=== PATIENT | male | born 1950 | race Caucasian/White ===

== ENCOUNTER → 2016-11-29 | Outpatient (CLI) | payer BC, OTHER ==
--- NOTE | 2016-11-29 17:53 | PCVCIMAG ---
APPROVED REPORT Study performed: 11/29/2016 13:25:04 EXAM: Comprehensive 2D, Doppler, and color-flow Echocardiogram Patient Location: Echo lab Status: routine Other Information Study Quality: Adequate Indications Atrial Fibrillation Hypertension/HDD 2D Dimensions IVSd: 11.15 (7-11mm)LVOT Diam: 24.56 (18-24mm) LVDd: 51.80 mm PWd: 11.68 (7-11mm)Ascending Ao: 39.97 (22-36mm) LVDs: 35.35 (25-40mm) Left Atrium: 57.06 (27-40mm) Aortic Root: 35.45 mm LV Single Plane 4CH: 49.68 % LV Single Plane 2CH: 48.19 %Arroyo's LVEF: 48.94 % Biplane EF: 50.2 % Volumes Left Atrial Volume (Systole) Single Plane 4CH: 107.01 mLSingle Plane 2CH: 99.26 mL LA ESV Index: 42.00 mL/m2 Aortic Valve AoV Peak Madhu.: 1.18 m/s AO Peak Gr.: 7.72 mmHgLVOT Max P.90 mmHg LVOT Max V: 0.82 m/s FRANSISCA Vmax: 3.29 cm2 Mitral Valve E/A Ratio: 1.0 MV E Max Madhu.: 0.71 m/s MV A Madhu.: 0.68 m/s Pulmonary Valve PV Peak Gr.: 1.11 mmHg Tricuspid Valve TR Peak Madhu.: 2.79 m/s TR Peak Gr.: 33.26 mmHg Left Ventricle The left ventricle is normal size. There is normal LV segmental wall motion. There is normal left ventricular wall thickness. Left ventricular systolic function is normal. The left ventricular ejection fraction is within the normal range. LVEF is 50%. The left ventricular diastolic function is normal. Right Ventricle The right ventricle is normal size. The right ventricular systolic function is normal. Atria Left atrium is mildly dilated. The right atrium size is normal. Aortic Valve The aortic valve is normal in structure. Trace aortic regurgitation. There is no aortic valvular stenosis. Mitral Valve The mitral valve is normal in structure. Mild mitral regurgitation. No evidence of mitral valve stenosis. Tricuspid Valve The tricuspid valve is normal in structure. Trace tricuspid regurgitation. Pulmonic Valve The pulmonary valve is normal in structure. Trace pulmonic regurgitation. Great Vessels The aortic root is normal in size. The ascending aorta is mildly dilated measuring up to 4.2. IVC is normal in size and collapses with >50% inspiration Pericardium There is no pericardial effusion. <Conclusion> The left atrium size is normal. The left ventricle is normal size. There is normal left ventricular wall thickness. Left ventricular systolic function is normal. The left ventricular ejection fraction is within the normal range. LVEF is 50%. Left atrium is mildly dilated. The aortic valve is normal in structure. The mitral valve is normal in structure. The aortic root is normal in size. There is no pericardial effusion.
== END | disposition home or self-care (01) ==
LOC: PCVCIMAG 12:53
PROVIDERS: ATTEND Internal Medicine Cardiovascular Disease
DX: I08.3 Combined rheumatic disorders of mitral, aortic and tricuspid valves (principal); I10 Essential (primary) hypertension; I48.2 Chronic atrial fibrillation; E11.9 Type 2 diabetes mellitus without complications; E78.00 Pure hypercholesterolemia, unspecified; I77.810 Thoracic aortic ectasia; Z79.84 Long term (current) use of oral hypoglycemic drugs; Z79.899 Other long term (current) drug therapy; Z87.891 Personal history of nicotine dependence
CPT/HCPCS: 80061; 93005; 93306; G0463

== ENCOUNTER → 2018-06-26 | Outpatient (CLI) | payer OTHER ==
--- NOTE | 2018-06-26 15:11 | PCVCIMAG ---
APPROVED REPORT Study performed: 06/26/2018 13:16:15 EXAM: Comprehensive 2D, Doppler, and color-flow Echocardiogram Patient Location: Echo lab Status: routine BSA: 2.61 HR: 58 bpmBP: 136/74 mmHg Rhythm: Atrial Fibrillation Other Information Study Quality: Adequate Risk Factors: Cardiac Risk Factors: Hyperlipidemia, DM, HTN Indications Atrial Fibrillation 2D Dimensions IVSd: 15.05 (7-11mm)LVOT Diam: 25.00 (18-24mm) LVDd: 50.42 mm PWd: 13.57 (7-11mm)Ascending Ao: 41.96 (22-36mm) LVDs: 33.89 (25-40mm) Left Atrium: 56.62 (27-40mm) Aortic Root: 40.16 mm LV Single Plane 4CH: 52.61 % LV Single Plane 2CH: 46.93 % Volumes Left Atrial Volume (Systole) Single Plane 4CH: 120.86 mLSingle Plane 2CH: 114.43 mL LA ESV Index: 45.00 mL/m2 Aortic Valve AoV Peak Madhu.: 1.15 m/s AO Peak Gr.: 5.32 mmHgLVOT Max P.30 mmHg LVOT Max V: 0.76 m/s FRANSISCA Vmax: 3.24 cm2 Pulmonary Valve PV Peak Madhu.: 0.75 m/sPV Peak Gr.: 2.24 mmHg Tricuspid Valve TR Peak Madhu.: 2.68 m/sRAP Estimate: 7.00 mmHg TR Peak Gr.: 28.76 mmHg PA Pressure: 36.00 mmHg Left Ventricle The left ventricle is normal size. There is normal LV segmental wall motion. Mild to moderate concentric left ventricular hypertrophy. Left ventricular systolic function is normal. The left ventricular ejection fraction is within the normal range. LVEF is 50-55%. This study is not technically sufficient to allow evaluation of the LV diastolic function due to atrial fibrillation. Right Ventricle The right ventricle is normal size. The right ventricular systolic function is normal. Atria Left atrium is moderately dilated. Right atrium is dilated. Aortic Valve The aortic valve is normal in structure. Trace aortic regurgitation. There is no aortic valvular stenosis. Mitral Valve There is mild mitral annular calcification. Mild mitral regurgitation. No evidence of mitral valve stenosis. Tricuspid Valve The tricuspid valve is normal in structure. Trace tricuspid regurgitation. Pulmonary artery pressure is 36 mmHg. Pulmonic Valve The pulmonary valve is normal in structure. Trace pulmonic regurgitation. Great Vessels The aortic root is normal in size. IVC is normal in size and collapses >50% with inspiration. Pericardium There is no pericardial effusion. <Conclusion> The left ventricle is normal size. LVEF is 50-55%. This study is not technically sufficient to allow evaluation of the LV diastolic function due to atrial fibrillation. The right ventricle is normal size. Left atrium is moderately dilated. Right atrium is dilated. Trace aortic regurgitation. Mild mitral regurgitation. Trace tricuspid regurgitation. Pulmonary artery pressure is 36 mmHg. The aortic root is normal in size. There is no pericardial effusion.
== END | disposition home or self-care (01) ==
LOC: PCVCIMAG 13:09
PROVIDERS: ATTEND Internal Medicine Cardiovascular Disease
DX: I34.0 Nonrheumatic mitral (valve) insufficiency (principal); E11.9 Type 2 diabetes mellitus without complications; I48.2 Chronic atrial fibrillation; E78.5 Hyperlipidemia, unspecified
CPT/HCPCS: 93306

== ENCOUNTER → 2019-01-24 | Outpatient (CLI) | payer OTHER ==
--- NOTE | 2019-01-25 10:24 | PCVCIMAG ---
APPROVED REPORT Study performed: 01/24/2019 15:58:40 Exam: Stress Echocardiogram Indication: Atrial Fibrillation, Dyspnea Patient Location: Echo lab Stress Nurse: Denisha Kaplan RN Status: routine Ht: 6 ft 3 in HR: 51 bpm BP: 150/85 mmHg Rhythm: Atrial Fibrillation Medical History Medical History: Atrial Fibrillation, Diabetes, HTN, Hyperlipidemia Procedure The patient underwent an Exercise Stress Test using the Dg Protocol. Blood pressure, heart rate, and EKG were monitored. An Echocardiogram was performed by mathematics technician in four stages in quad fashion. At peak stress, four selected images were obtained and placed side by side with resting images for comparison. Stress Test Details Stress Test: Exercise stress testing was performed using a Dg protocol. HR Resting HR: 51 bpmMax Heart Rate (APMHR): 154 bpm Max HR Achieved: 155 bpmTarget HR (85% APMHR): 130 bpm % of APMHR: 100 Recovery HR: 65 bpm HR response to stress: Normal HR response to stress BP Resting BP: 150/85 mmHg Max BP: 200/100 mmHg Recovery BP: 110/70 mmHg BP response to stress: Normal blood pressure response to stress. ECG Resting ECG: Atrial Fibrillation Stress ECG: Atrial Fibrillation, Non-sustained VT ST Change: Non-sustained VT, PVC's Arrhythmia: Non-sustained VT, PVC's Recovery ECG: Non-sustained VT, PVC's Recovery ST Change: Atrial Fibrillation, Non-sustained VT Recovery Arrhythmia: Atrial Fibrillation, Non-sustained VT Clinical Reason for Termination: Non-sustained VT, Dyspnea Stress Symptoms: Dyspnea Exercise duration: 4 min 51 sec Highest Stage Achieved: Stage 2: 2.5 mph at 12% grade. Exercise capacity: 7.00 METs Overall Exercise Capacity for Age: Poor Nurse note- Test terminated for ventricular ectopy and severe dyspnea with pallor. Pt unable to lie down for images d/t air hunger, imaged in upright position. Called for assistance. Denied chest pain but admitted to severe SOA. Nitro given - 0.4 mg SL per GM order, BP 144/80. Symptoms resolved and ventricular ectopy resolved after a few moments. Pt set up for heart cath. Stable upon discharge with BP 124/78, rhthym Afib PVC's. Pre-Stress Echo The resting Echocardiogram showed normal left ventricular contractility with an estimated Ejection Fraction of about >55%. Post-Stress Echo Images obtained during ventricular arrhythmia. Lateral and anterior wall appear hypokinetic. Conclusion Clinical Response: Ischemic Exercise Capacity: Below Average Stress ECG Response: Ischemic Stress Echo Images: Ischemic Other Information Study Quality: Adequate
== END | disposition home or self-care (01) ==
LOC: PCVCIMAG 15:49
PROVIDERS: ATTEND Internal Medicine Cardiovascular Disease
DX: I48.91 Unspecified atrial fibrillation (principal); E78.5 Hyperlipidemia, unspecified; I10 Essential (primary) hypertension; E11.9 Type 2 diabetes mellitus without complications
CPT/HCPCS: 93325; 93351

== ENCOUNTER → 2019-03-14 | Outpatient (CLI) | payer MEDICARE ==
[~2019-03-14] MED LIST: REGADENOSON 0.4 MG/5 ML DISP.SYRIN. IV ONE
--- NOTE | 2019-03-14 15:39 | PCVCIMAG ---
APPROVED REPORT Imaging Protocol: Rest Tc-99m/Stress Tc-99m 1 day Study performed: 03/14/2019 08:41:52 Indication: Atrial Fibrillation, CAD, Chest pain, Dyspnea, Pre-Syncope Patient Location: Out-Patient Stress Nurse: Lacey Butt RN, Denisha Kaplan RN [place] Tech:CHASIDY AngelaMT Ht: 6 ft 4 in Wt: 290 lbs BSA: 2.59 m2 HR: 96 bpm BP: 135/91 mmHg BMI: 35.2 Rhythm: Atrial Fibrillation, nonspecific ST-T abnormalities Medical History Medical History: Hyperlipidemia, CVD, Former Smoker Medications: Amlodipine, Atorvastatin, Zetia, Losartan, Pradaxa Allergies: No known drug allergies Cardiac Risk Factors: Age Pretest Chest Pain Characteristics: No chest pain Exercise History: Physically active Resting Data Rest SPECT myocardial perfusion imaging was performed in supine position 45 minutes following the intravenous injection of 11.1 mCi of Tc-99m Sestamibi. Time of rest injection: 0900 Date: 03/14/2019 Administration Route: IV Administration Site: Right Hand Pharmacologic Stress Pharmacologic stress test was performed by injecting Regadenoson 0.4 mg IV push over 10-15 seconds immediately followed by the intravenous injection of 34.3 mCi of Tc-99m Sestamibi. Time of stress injection: 1030 Date: 03/14/2019 Administration Route: IV Administration Site: Right Hand Gated Stress SPECT was performed 45 minutes after stress injection. The images were gated to evaluate regional wall motion and calculate left ventricular ejection fraction. Stress Test Details Stress Test: Pharmacologic stress testing performed using 0.4 mg of regadenoson per 5 mL given IV over 10 seconds. Reason for pharmacologic stress test: physical limitation, Atrial Fibrillation. HRMax Heart Rate (APMHR): 153 bpm Resting HR: 96 bpmTarget HR (85% APMHR): 130 bpm Max HR Achieved: 125 bpm % of APMHR: 81 Recovery HR: 89 bpm HR response to stress: 135 BP Resting BP: 91/156 mmHg Max BP: 100/134 mmHg Recovery BP: 70/ mmHg ECG Resting ECG: Atrial Fibrillation, nonspecific ST-T abnormalities Stress ECG: Atrial Fibrillation, nonspecific ST-T abnormalities Arrhythmia: PVC's Recovery ECG: Atrial Fibrillation, nonspecific ST-T abnormalities Clinical Reason for Termination: Completed protocol Stress Symptoms: Lightheaded Exercise duration: min 55 sec Symptoms resolved with caffeine. Stress ECG Conclusion ECG: Non-ischemic Study Quality Study: Good Study Data Post stress, the left ventricular ejection was 61%.. SSS: 3 SRS: 0 SDS: 3 TID = 1.04. Perfusion No evidence of stress induced ischemia or prior myocardial infarction. Wall Motion Normal left ventricular size and function with no regional wall motion abnormalities. Nuclear Conclusion No evidence of stress induced ischemia or prior myocardial infarction. Normal left ventricular size and function with no regional wall motion abnormalities. Post stress, the left ventricular ejection was 61%. No change since prior study dated November 2014. Interpreted by: Jose De Jesus Chun MD Electronically Approved: 03/14/2019 14:23:43 <Conclusion> ECG: Non-ischemic
--- NOTE | 2019-03-14 18:29 | PCVCIMAG ---
EXAM: BILATERAL CAROTID DUPLEX INDICATION: Carotid Occlusive Disease. FINDINGS: Doppler Measurements (centimeters per second): RIGHT: Peak CCA-91, Peak ECA-57, Diastolic ICA-30, Peak ICA-76, ICA/CCA Ratio-0.8. LEFT: Peak CCA-102, Peak ECA-65, Diastolic ICA-15, Peak ICA-75, ICA/CCA Ratio-0.7. RIGHT CAROTID: The carotid bulb has mild plaque. The proximal internal carotid artery shows <40% stenosis. The common carotid artery shows no significant stenosis. The external carotid artery shows no significant stenosis. LEFT CAROTID: The carotid bulb has moderate plaque. The proximal internal carotid artery shows <40% stenosis. The common carotid artery shows no significant stenosis. The external carotid artery shows no significant stenosis. Antegrade flow in both vertebral arteries. IMPRESSION: <40% stenosis of the right internal carotid artery with mild plaque. <40% stenosis of the left internal carotid artery with moderate plaque. LOC:[place] [id number]
== END | disposition home or self-care (01) ==
LOC: PCVCIMAG 08:05
PROVIDERS: ATTEND Internal Medicine Cardiovascular Disease
DX: I65.23 Occlusion and stenosis of bilateral carotid arteries (principal); R07.9 Chest pain, unspecified; R06.09 Other forms of dyspnea; R55 Syncope and collapse; I25.10 Atherosclerotic heart disease of native coronary artery without angina pectoris; I48.91 Unspecified atrial fibrillation; R93.1 Abnormal findings on diagnostic imaging of heart and coronary circulation; R06.02 Shortness of breath; R09.89 Other specified symptoms and signs involving the circulatory and respiratory systems; E78.00 Pure hypercholesterolemia, unspecified; E11.9 Type 2 diabetes mellitus without complications; Z87.891 Personal history of nicotine dependence
CPT/HCPCS: 78452; 93017; 93880; A9500; J2785